=== PATIENT | female | born 1940 | race Caucasian/White ===

== ENCOUNTER 2023-05-05 14:35 | Inpatient (IN) | payer MEDICARE, OTHER, SELFPAY ==
[2023-05-05] VITALS (32 sets, daily range): BP systolic 154–166; BP diastolic 59–67; PULSE 66–96; RESP 13–28; TEMP 36.4–36.7; O2SAT 95–99; BMI 30.1; BMI 21.0
--- NOTE | 2023-05-05 14:48 | CT_ITS ---
The [address] [address] Patient Name: CRISTOBAL MCDANIELS MRN: [id number] date: 1940 Sex: F Assigned Patient Location: ED.MAIN Current Patient Location: Accession/Order Number: [id number] Exam Date: 05/05/2023 14:54 Report Date: 05/05/2023 15:08 At the request of: DODIE BLANCHARD Procedure: CT stroke head/brain wo con EXAMINATION: CT stroke head/brain wo con TECHNIQUE: Axial CT images were obtained through the brain. Sagittal and coronal reformatted images were also obtained. Dose reduction techniques were achieved by using automated exposure control and/or adjustment of mA and/or kV according to patient size and/or use of iterative reconstruction technique. HISTORY: right sided weakness COMPARISON: None. FINDINGS: Intracranial Bleed: No evidence for acute intracranial bleed. Intracranial Mass: No evidence for mass lesion. No mass effect or midline shift. Extra-axial spaces: There is mild cerebral atrophy and proportional ventricular enlargement. White/Hernandez Matter: No acute cortical infarct. Old lacunar infarct of the left basal ganglia. Mild chronic white matter small vessel ischemic change. Skull/Scalp: No evidence for skull fracture or lesion. Orbits and sinuses: The orbits appear unremarkable. The visualized paranasal sinuses are clear. CT/CT stroke head/brain wo con IMPRESSION: No acute intracranial pathology. Electronically authenticated by: APRIL RODRIGUEZ Date: 05/05/2023 15:08
--- NOTE | 2023-05-05 14:48 | ECG_ITS ---
The [facility] Test Date: 2023-05-05 Pat Name: CRISTOBAL MCDANIELS Department: Room: - Gender: Female Workers Compensation Administrator: : 1940 Requested By: Order Number: [id number] Reading MD: MALLORIE CHUA Measurements Intervals [place] Rate: 78 P: 70 [place]: 174 QRS: -24 QRSD: 82 T: 71 QT: 366 QTc: 399 Interpretive Statements 1100 Sinus rhythm 5234 Left ventricular hypertrophy with repolarization abnormality 7202 Moderate left axis deviation 9150 abnormal ECG No previous ECG available for comparison Electronically Signed On 05-07-2023 18:19:51 EDT by MALLORIE CHUA
--- NOTE | 2023-05-05 14:50 | ED.NEUROSD1 ---
HPI - Neuro Symptoms/Deficit General Chief Complaint: Neuro Symptoms/Deficit Stated Complaint: CVA SYMPTOMS Time Seen by Provider: 05/05/23 14:42 History of Present Illness HPI Narrative: patient developed right arm and right leg weakness around 3pm this afternoon and was brought to our ED by her daughter for evaluation. The patient and daughter gave the history. They were shopping at [employer] in [place] when the daughter noticed that the patient had difficulty stepping and bearing weight onto the right foot. 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 Patient said that she takes thyroid medication only. She denied HTN, high cholesterol, DM, CAD or prior CVA/TIA. She admitted that she does not see her PCP regularly. Her physician works in another town far from here - the patient lives elsewhere but has been visiting her daughter since the recent of the daughter's . On questioning the patient admitted that the episode started the evening of 05/02/23 and has been waxing and waning since without returning to baseline and then suddenly worsening around 3pm this afternoon. So last knwon well is actually around 5 or 6pm on 05/02/23. Related Data Home Medications Medication Instructions Recorded Confirmed levothyroxine 100 mcg tablet 100 mcg PO DAILY 05/05/23 05/05/23 Allergies Allergy/AdvReac Type Severity Reaction Status Date / Time No Known Drug Allergies Allergy Verified 05/05/23 14:52 PFSH PFS Social History Smoking status: Former smoker Exam Narrative Exam Narrative: Nurses notes and vital signs reviewed and patient is not hypoxic. afebrile General: Well-appearing and in no apparent distress. GCS=15. Skin: Warm, dry, no pallor noted. No rash. Head: Normocephalic, atraumatic. Neck: Supple, non-tender. Eye: Pupils are equal, round and EOMI. No scleral icterus. Ears, Nose, Mouth, and Throat: No facial asymmetry Cardiovascular: Regular Rate and Rhythm without murmur, gallop or rub. Respiratory: No accessory muscle use or respiratory distress. Lungs are clear to auscultation, no wheezing, rales or rhonchi Musculoskeletal: normal ROM, no calf or popliteal tenderness, no lower extremity edema/swelling GI: Abdomen is soft, non-distended. Normal bowel sounds. No tenderness to palpation. No rebound, guarding, or rigidity noted. Neurological: A&O x4. No cranial nerve dysfunction observed. No truncal ataxia. Moves all extremities. Sensation intact. Psychiatric: Cooperative and interactive. Normal mood and affect. NIH =2 for right UE and right LE weakness. Constitutional Vital Signs, click to edit/add: Last Vital Signs Temp 98.1 F 05/05/23 14:46 Pulse 77 05/05/23 16:10 Resp 18 05/05/23 16:10 BP 154/59 H 05/05/23 17:16 Pulse Ox 99 05/05/23 17:10 O2 Del Method Room Air 05/05/23 14:46 Course Vital Signs Vital signs: Vital Signs Temperature 98.1 F 05/05/23 14:46 Pulse Rate 96 H 05/05/23 14:46 Respiratory Rate 18 05/05/23 14:46 Blood Pressure 166/64 H 05/05/23 14:46 Pulse Oximetry 96 05/05/23 14:46 Oxygen Delivery Method Room Air 05/05/23 14:46 Temperature 98.1 F 05/05/23 14:46 Pulse Rate 77 05/05/23 16:10 Respiratory Rate 18 05/05/23 16:10 Blood Pressure 154/59 H 05/05/23 17:16 Pulse Oximetry 99 05/05/23 17:10 Oxygen Delivery Method Room Air 05/05/23 14:46 MDM - Neuro Symptoms/Deficit MDM Narrative Medical decision making narrative: Patient presents with sudden onset right UE and right LE weakness onset/LKW around 3pm. GCS = 15. NIH = 2 due to right sided weakness. Patient immediately sent for non contrast head CT per stroke protocol. radiologist did not find acute pathology to account for the patient's symptoms. Patient was placed on surveillance monitor and EKG obtained. Blood drawn and sent for evaluation. Urine was ordered to be obtained. CT angio head and neck revealed left middle cerebral artery CVA. Dr Redman at [facility] and I discussed this patient's case several times and it was decided that the patient would receive a loading dose of aspirin 325mg orally and then be started on 81mg aspirin daily. No plavix would be given and the patient would be admitted to [facility] with teleneurology consultation, non contrast MRI of the brain and Echocardiography testing. I contacted the lead simulation modeling engineer teleneurologist to discuss admission. Dr Salazar Sister agreed to admit the patient - ICU, inpatient with orders as noted above. I kept continued communication with the patient and her daughter to inform them of plan for evaluation, tests results, diagnosis and recommended treatment. We discussed many transfer options and the logistics and challenges of those options. they agreed to have the patient stay at [facility] as recommended by Dr Redman. Lab Data Attestation: I reviewed the patient's lab results. Labs: Lab Results 05/05/23 05/05/23 Range/Units 14:54 15:01 WBC 6.8 (4.0-11.0) 10^3/uL RBC 4.73 (4.20-5.40) 10^6/uL Hgb 13.7 (12.0-16.0) g/dL Hct 42.9 (36.0-48.0) % MCV 90.7 (81.0-99.0) fL MCH 29.0 (26.7-34.0) pg MCHC 31.9 (29.9-35.2) g/dL RDW 13.8 (11.0-15.0) % Plt Count 269 (150-450) 10^3/uL MPV 10.8 (9.5-13.5) fL Neut % (Auto) 57.3 (43.0-75.0) % Lymph % (Auto) 30.7 (20.5-60.0) % [place] % (Auto) 9.6 (1.7-12.0) % Eos % (Auto) 1.9 (0.9-7.0) % Baso % (Auto) 0.4 (0.2-2.0) % Neut # (Auto) 3.9 (1.4-6.5) 10^3/uL Lymph # (Auto) 2.1 (1.2-3.8) 10^3/uL [place] # (Auto) 0.7 (0.3-0.8) 10^3/uL Eos # (Auto) 0.1 (0.0-0.7) 10^3/uL Baso # (Auto) 0.0 (0.0-0.1) 10^3/uL Abs Immat Gran (auto) 0.01 (0.00-0.03) 10^3/uL Imm/Tot Granulo (auto) 0.1 (0.0-0.5) % PT 10.2 (9.0-11.6) sec INR 0.96 APTT 24.9 (22.3-36.2) sec Sodium 138 (136-145) mmol/L Potassium 4.0 (3.5-5.1) mmol/L Chloride 104 (98-107) mmol/L Carbon Dioxide 31.4 (21.0-32.0) mmol/L Anion Gap 6.6 BUN 14.0 (7.0-18.0) mg/dL Creatinine 0.83 (0.55-1.02) mg/dL Est GFR ( Amer) >60 (>=60) Est GFR (Non-Af Amer) >60 (>=60) BUN/Creatinine Ratio 16.9 Glucose 154 H (74-106) mg/dL Calcium 9.8 (8.5-10.1) mg/dL Total Bilirubin 0.4 (0.2-1.0) mg/dL AST 20 (15-37) U/L ALT 28 (14-59) U/L Alkaline Phosphatase 85 (46-116) U/L Total Protein 7.4 (6.4-8.2) g/dL Albumin 3.9 (3.4-5.0) g/dL Globulin 3.5 g/dL Albumin/Globulin Ratio 1.1 POC Glucose 141 H (74-106) mg/dL Imaging Data CT scan - head: Radiologist's impression: Patient Name: CRISTOBAL MCDANIELS MRN: [id number] date: 1940 Sex: F Assigned Patient Location: ED.MAIN Current Patient Location: ER Accession/Order Number: [id number] Exam Date: 05/05/2023 14:54 Report Date: 05/05/2023 15:08 At the request of: DODIE BLANCHARD Procedure: CT stroke head/brain wo con EXAMINATION: CT stroke head/brain wo con TECHNIQUE: Axial CT images were obtained through the brain. Sagittal and coronal reformatted images were also obtained. Dose reduction techniques were achieved by using automated exposure control and/or adjustment of mA and/or kV according to patient size and/or use of iterative reconstruction technique. HISTORY: right sided weakness COMPARISON: None. FINDINGS: Intracranial Bleed: No evidence for acute intracranial bleed. Intracranial Mass: No evidence for mass lesion. No mass effect or midline shift. Extra-axial spaces: There is mild cerebral atrophy and proportional ventricular enlargement. White/Hernandez Matter: No acute cortical infarct. Old lacunar infarct of the left basal ganglia. Mild chronic white matter small vessel ischemic change. Skull/Scalp: No evidence for skull fracture or lesion. Orbits and sinuses: The orbits appear unremarkable. The visualized paranasal sinuses are clear. IMPRESSION: No acute intracranial pathology. Electronically authenticated by: APRIL RODRIGUEZ Date: 05/05/2023 15:08 CT angio head & neck: Radiologist's impression: Patient Name: CRISTOBAL MCDANIELS MRN: [id number] date: 1940 Sex: F Assigned Patient Location: ER Current Patient Location: Accession/Order Number: [id number] Exam Date: 05/05/2023 16:20 Report Date: 05/05/2023 17:34 At the request of: DODIE BLANCHARD Procedure: CT angio head EXAM: CT angio head HISTORY: Right-sided weakness and slurred speech.. COMPARISON: Head CT on 05/15/2023. TECHNIQUE: Following IV administration of iodinated contrast, axial CT scans of the head and neck were obtained. MPR and MIP images images were obtained. Carotid stenosis is based on NASCET criteria. Dose reduction techniques were achieved by using automated exposure control and/or adjustment of mA and/or kV according to patient size and/or use of iterative reconstruction technique. FINDINGS: CTA OF THE HEAD: No major branch occlusion or significant intracranial stenosis. No aneurysm. Patent dural venous sinuses. CTA OF THE NECK: No abnormal soft tissue mass in the neck. The visualized lungs show no acute process in. Osseous structures are intact. Aortic arch shows no aneurysm. The great vessels of the aortic arch show no significant stenosis. Vertebral arteries show no significant stenosis or dissection. Common carotids and internal carotids show no significant stenosis or dissection. IMPRESSION: Head CT without contrast on 05/05/2023 shows possible small acute nonhemorrhagic infarct in the left middle frontal gyrus with low attenuation and loss of cortical medullary differentiation. If there is clinical indication, please consider MRI. No large vessel occlusion or significant intracranial stenosis. Patent dural venous sinuses. Carotids and vertebral arteries show no dissection or significant stenosis. Electronically authenticated by: CAROL SANCHES Date: 05/05/2023 17:34 ECG Data Interpretation: EKG interpretation: Emergency Department physician interpretation. Normal sinus rhythm at 78bpm. LVH with repolarization changes, Left axis. no ST segment elevation or depression. Critical Care Time Critical Care Time Critical Care Time: Yes Total Critical Care Time: 50 Attestation: includes time spent evaluating and examining the patient, ordering critical testing, time spent reviewing results and multiple discussions with providers including Neuro/Stroke team at [facility] and telehospitalist at [facility]. Discharge Plan Discharge Chief Complaint: Neuro Symptoms/Deficit Clinical Impression: Acute ischemic left MCA stroke Patient Disposition: Admitted As Inpatient Time of Disposition Decision: 15:59 Additional Instructions: admit, inpatient, ICU, Dr Franks's service (he takes over as hospitalist tomorrow morning)
[2023-05-05 15:03] LABS: Glucometer 141 mg/dL (74-106)
[2023-05-05 15:08] LABS: Basophils Percent Auto 0.4 % (0.2-2.0); Eosinophils Absolute Auto 0.1 10^3/uL (0.0-0.7); Eosinophils Percent Auto 1.9 % (0.9-7.0); Hematocrit 42.9 % (36.0-48.0); Hemoglobin 13.7 g/dL (12.0-16.0); Immature Granulocytes Abs Auto 0.01 10^3/uL (0.00-0.03); Immature Granulocytes Pct Auto 0.1 % (0.0-0.5); Lymphocytes Absolute Auto 2.1 10^3/uL (1.2-3.8); Lymphocytes Percent Auto 30.7 % (20.5-60.0); Mean Corpuscular HGB Conc 31.9 g/dL (29.9-35.2); Mean Corpuscular Volume 90.7 fL (81.0-99.0); Mean Platelet Volume 10.8 fL (9.5-13.5); Monocytes Absolute Auto 0.7 10^3/uL (0.3-0.8); Monocytes Percent Auto 9.6 % (1.7-12.0); Neutrophils Absolute Auto 3.9 10^3/uL (1.4-6.5); Neutrophils Percent Auto 57.3 % (43.0-75.0); Platelet Count 269 10^3/uL (150-450); Red Blood Count 4.73 10^6/uL (4.20-5.40); Red Cell Distribution Width 13.8 % (11.0-15.0); White Blood Count 6.8 10^3/uL (4.0-11.0)
[2023-05-05 15:26] LABS: INR 0.96; Prothrombin Time 10.2 sec (9.0-11.6)
[2023-05-05 15:28] LABS: Partial Thromboplastin Time 24.9 sec (22.3-36.2)
--- NOTE | 2023-05-05 15:31 | PC.NURSE ---
Pt scores a 2 on the NIH scale for right leg and arm drift.
[2023-05-05 15:34] LABS: Alanine Aminotransferase 28 U/L (14-59); Albumin Globulin Ratio 1.1; Albumin Level 3.9 g/dL (3.4-5.0); Alkaline Phosphatase 85 U/L (46-116); Anion Gap 6.6; Aspartate Amino Transferase 20 U/L (15-37); BUN Creatinine Ratio 16.9; Bilirubin Total 0.4 mg/dL (0.2-1.0); Calcium 9.8 mg/dL (8.5-10.1); Carbon Dioxide 31.4 mmol/L (21.0-32.0); Chloride 104 mmol/L (98-107); Estimated GFR (African America >60 (>=60); Estimated GFR (Non-African Ame >60 (>=60); Globulin 3.5 g/dL; Glucose 154 mg/dL (74-106); Sodium 138 mmol/L (136-145); Total Protein 7.4 g/dL (6.4-8.2)
--- NOTE | 2023-05-05 15:35 | PC.NURSE ---
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 She states she has no deltoid muscle so is limited in lifting the upper part of her arm, but is very independent and runs her own home . She lives in [facility] and has been here for the of her daughters . She describes her right leg becoming very heavy today, and her arm increasingly weak too. She initially noticed her leg feeling weak on Monday night, but to a much lesser extent. She kept it to herself as they were going to have a .
--- NOTE | 2023-05-05 16:29 | CT_ITS ---
The [address] [address] Patient Name: CRISTOBAL MCDANIELS MRN: [id number] date: 1940 Sex: F Assigned Patient Location: ER Current Patient Location: Accession/Order Number: [id number] Exam Date: 05/05/2023 16:20 Report Date: 05/05/2023 17:34 At the request of: DODIE BLANCHARD Procedure: CT angio neck EXAM: CT angio head HISTORY: Right-sided weakness and slurred speech.. COMPARISON: Head CT on 05/15/2023. TECHNIQUE: Following IV administration of iodinated contrast, axial CT scans of the head and neck were obtained. MPR and MIP images images were obtained. Carotid stenosis is based on NASCET criteria. Dose reduction techniques were achieved by using automated exposure control and/or adjustment of mA and/or kV according to patient size and/or use of iterative reconstruction technique. FINDINGS: CTA OF THE HEAD: No major branch occlusion or significant intracranial stenosis. No aneurysm. Patent dural venous sinuses. CTA OF THE NECK: No abnormal soft tissue mass in the neck. The visualized lungs show no acute process in. Osseous structures are intact. Aortic arch shows no aneurysm. The great vessels of the aortic arch show no significant stenosis. Vertebral arteries show no significant stenosis or dissection. Common carotids and internal carotids show no significant stenosis or dissection. CT/CT angio neck IMPRESSION: Head CT without contrast on 05/05/2023 shows possible small acute nonhemorrhagic infarct in the left middle frontal gyrus with low attenuation and loss of cortical medullary differentiation. If there is clinical indication, please consider MRI. No large vessel occlusion or significant intracranial stenosis. Patent dural venous sinuses. Carotids and vertebral arteries show no dissection or significant stenosis. Electronically authenticated by: CAROL SANCHES Date: 05/05/2023 17:34
--- NOTE | 2023-05-05 16:29 | CT_ITS ---
The [address] [address] Patient Name: CRISTOBAL MCDANIELS MRN: [id number] date: 1940 Sex: F Assigned Patient Location: ER Current Patient Location: Accession/Order Number: [id number] Exam Date: 05/05/2023 16:20 Report Date: 05/05/2023 17:34 At the request of: DODIE BLANCHARD Procedure: CT angio head EXAM: CT angio head HISTORY: Right-sided weakness and slurred speech.. COMPARISON: Head CT on 05/15/2023. TECHNIQUE: Following IV administration of iodinated contrast, axial CT scans of the head and neck were obtained. MPR and MIP images images were obtained. Carotid stenosis is based on NASCET criteria. Dose reduction techniques were achieved by using automated exposure control and/or adjustment of mA and/or kV according to patient size and/or use of iterative reconstruction technique. FINDINGS: CTA OF THE HEAD: No major branch occlusion or significant intracranial stenosis. No aneurysm. Patent dural venous sinuses. CTA OF THE NECK: No abnormal soft tissue mass in the neck. The visualized lungs show no acute process in. Osseous structures are intact. Aortic arch shows no aneurysm. The great vessels of the aortic arch show no significant stenosis. Vertebral arteries show no significant stenosis or dissection. Common carotids and internal carotids show no significant stenosis or dissection. CT/CT angio head IMPRESSION: Head CT without contrast on 05/05/2023 shows possible small acute nonhemorrhagic infarct in the left middle frontal gyrus with low attenuation and loss of cortical medullary differentiation. If there is clinical indication, please consider MRI. No large vessel occlusion or significant intracranial stenosis. Patent dural venous sinuses. Carotids and vertebral arteries show no dissection or significant stenosis. Electronically authenticated by: CAROL SANCHES Date: 05/05/2023 17:34
[2023-05-05 18:49] LABS: Bilirubin Urine NEGATIVE (NEGATIVE); Blood Urine NEGATIVE (NEGATIVE); Clarity Urine CLEAR (CLEAR); Color Urine LT. YELLOW (YELLOW); Glucose Urine UA NEGATIVE (NEGATIVE); Ketones Urine NEGATIVE (NEGATIVE); Leukocyte Esterase Urine NEGATIVE (NEGATIVE); Nitrite Urine NEGATIVE (NEGATIVE); Protein Urine NEGATIVE (NEG/TRACE); Urobilinogen Urine 0.2 EU/dL (0.2-1.0)
[2023-05-05] MEDS: ASPIRIN 325 MG TABLET PO (18:50)
[2023-05-05 19:02] LABS: Urine Microscopic Indicated NO
--- NOTE | 2023-05-05 20:42 | W.PM.TELEPN ---
Progress Note: Subjective Subjective Interval history: CC: Right-sided weakness HPI: This is a very pleasant 82 years old female who does not have primary care physician in the area and who presents with above complaints. Patient stating that about 3 days ago she developed weakness in her right side (arm and leg.). The symptoms were intermittent in the beginning, but gradually intensified. Today she has not been able to get out of her car. Patient is right side predominant. She never had strokes in the past. Patient's past medical history significant for hypothyroidism for which she takes levothyroxine. No history of diabetes, cholesterol problems, arrhythmia or dyslipidemia. Evaluation in the emergency room (imaging) confirm recent stroke in the left MCA territory. A full consultation obtained with a neurologist who recommended for patient to stay in the hospital to continue neurological work-up. In terms of secondary prevention?recommendations to continue with aspirin only. Exam Narrative Exam Narrative: ROS: 1.General: no fever, chills, not in distress 2.HEENT: no GAO, no blurry vision, no swallow problems, no nasal congestion, no sore throat 3.Pulmonary: no cough, SOB, wheezes 4.CVS: no CP, no palpitations, no ARIAS, no SOB, no intermittent claudication 5.GI: no nausea, vomiting or diarrhea, no abdominal pain, no constipation, no hematemesis or hematochezia 6.: no renal colic, no hematuria, urinary frequency or urgency 7.Extremities: no edema 8.Neurological: See above 9.Musculosceletal: no joint pains, no joint swelling, no back pain 10.Dermatological: no skin rashes, no lesions, no pruritus 11.Hematological: no bleeding, no hx/o clots 12.Endocrinological: no heat/cold intolerance, no hx/o diabetes 13.Psychiatric: no suicidal or homicidal thoughts Physical Exam: Not in distress, pleasant, lucid, cooperative, Head - atraumatic, eyes - pupils equal, round, reactive to light, extra ocular movement intact, MMM Neck - supple, thyroid not enlarged, LN not palpated Lungs - clear to auscultation, no dullness on percussion CVS - heart sounds S1, S2, no additional murmurs gallop, regular rate and rhythm Gastrointestinal?abdomen is soft, non-tender, non-distended, no organomegaly, positive bowel sounds Extremities no clubbing, cyanosis or edema Neurological?cranial nerve II?XII grossly intact, right sided weakness with motor strength of 3/5 Musculoskeletal - joints, no effusions, ROM preserved Dermatological - the skin dry, warm, no rashes Psychiatric?patient is AAO X3, patient has normal affect Constitutional Vital Signs, click to edit/add: Last Vital Signs Temp 97.8 F 05/05/23 20:13 Pulse 67 05/05/23 20:13 Resp 16 05/05/23 20:13 BP 163/67 H 05/05/23 20:13 Pulse Ox 97 05/05/23 20:13 O2 Del Method Room Air 05/05/23 20:13 Progress Note: Objective Labs Labs: Short CBC 05/05/23 Range/Units 14:54 WBC 6.8 (4.0-11.0) 10^3/uL Hgb 13.7 (12.0-16.0) g/dL Hct 42.9 (36.0-48.0) % Plt Count 269 (150-450) 10^3/uL BMP 05/05/23 14:54 Sodium 138 Potassium 4.0 Chloride 104 Carbon Dioxide 31.4 BUN 14.0 Creatinine 0.83 Glucose 154 H Calcium 9.8 Liver Function 05/05/23 Range/Units 14:54 Total Bilirubin 0.4 (0.2-1.0) mg/dL AST 20 (15-37) U/L ALT 28 (14-59) U/L Alkaline Phosphatase 85 (46-116) U/L Albumin 3.9 (3.4-5.0) g/dL Urine 05/05/23 Range/Units 18:30 Urine Color Lt. yellow (YELLOW) Urine Clarity Clear (CLEAR) Urine pH 7.0 (5.0-9.0) Ur Specific [place] 1.010 (1.005-1.025) Urine Protein Negative (NEG/TRACE) mg/dL Urine Glucose (UA) Negative (NEGATIVE) mg/dL Progress Note: A&P Assessment and Plan (1) Acute ischemic left MCA stroke: Assessment and Plan: CVA - patient admitted with acute neurological deficit - As per evaluation in ER patient did not qualify for a tPa treatment - Admit to telemetry - Frequent neuro-checks - Will obtain MRI of the brain and MRA of the Head and Neck - Will obtain an ECHO with bubbles - F/U with Neurologist for further recommendations Secondary prevention ? will make sure patient is on Full dose of EC ASA and at least moderate potency dose of Atorvastatin unless contraindicated Tertiary prevention ? fall/aspiration precautions are in place - DVT prophylaxis (2) Hypercholesteremia: Assessment and Plan: Patient started on moderate potency dose of atorvastatin. Follow-up results of the lipid panel (3) Hypothyroid: Assessment and Plan: Restarted on home dose of supplemental levothyroxine (4) Injury of deltoid region: Assessment and Plan: Follow-up with physical and Occupational Therapy for further recommendations Plan END: As the provider for the telehealth service, I attest that I introduced myself to the patient, provided my credentials, disclosed by location and determined that based on a review of the patient's chart and discussion with members of the patient's treatment team, telemedicine via real-time, 2 way, and interactive audio and video platform is an appropriate and effective means of providing the service. ?The patient and I mutually agree this visit is appropriate for telemedicine. ?[place] ?The encounter took approximately 35 minutes. ?The nurse was present during the entire time and I was able to move the stethoscope in appropriate directions. ?The patient was evaluated at the Hospital ? Portions of this note may be dictated using [employer] voice recognition software. Variances in spelling and vocabulary are possible and unintentional. Not all errors may be caught and/or corrected. Please notify the author if any discrepancies are noted and/or if the meaning of any statement is unclear.? ? Patient verbally consented for treatment via video visit with patient currently located at the [facility] and provider located in [place]. Telemedicine Attestation Telemedicine Attestation I conducted this encounter from [place]] via secure live, [id number] video conference with the patient, located at [facility] with [CVA,]. Prior to the interview, the risks and benefits of telemedicine were discussed with the patient and verbal consent was obtained.
[2023-05-05 20:58] LABS: Basophils Absolute Auto 0.1 10^3/uL (0.0-0.1); Eosinophils Absolute Auto 0.2 10^3/uL (0.0-0.7); Eosinophils Percent Auto 3.1 % (0.9-7.0); Hematocrit 42.2 % (36.0-48.0); Hemoglobin 13.4 g/dL (12.0-16.0); Immature Granulocytes Abs Auto 0.02 10^3/uL (0.00-0.03); Immature Granulocytes Pct Auto 0.3 % (0.0-0.5); Lymphocytes Absolute Auto 2.3 10^3/uL (1.2-3.8); Lymphocytes Percent Auto 33.7 % (20.5-60.0); Mean Corpuscular HGB Conc 31.8 g/dL (29.9-35.2); Mean Corpuscular Hemoglobin 29.2 pg (26.7-34.0); Mean Corpuscular Volume 91.9 fL (81.0-99.0); Mean Platelet Volume 10.9 fL (9.5-13.5); Monocytes Absolute Auto 0.9 10^3/uL (0.3-0.8); Neutrophils Absolute Auto 3.3 10^3/uL (1.4-6.5); Neutrophils Percent Auto 48.9 % (43.0-75.0); Platelet Count 261 10^3/uL (150-450); Red Blood Count 4.59 10^6/uL (4.20-5.40); White Blood Count 6.7 10^3/uL (4.0-11.0)
[2023-05-05 21:08] LABS: pH VBG 7.488 (7.330-7.430)
[2023-05-05 21:09] LABS: PCO2 VBG 35.3 mmHg (40.0-52.0)
[2023-05-05 21:17] LABS: Chol HDL Ratio 2.6; Cholesterol 264 mg/dL (<=200); HDL Cholesterol 103 mg/dL (40-60); Triglycerides 79 mg/dL (<=150); VLDL CHOLESTEROL 15.8 mg/dL
[2023-05-05] MEDS: 0.9 % SODIUM CHLORIDE 1,000 ML 75 ML IV (23:27)
[2023-05-05] MEDS: ATORVASTATIN CALCIUM 40 MG TABLET PO (23:28)
[2023-05-06] VITALS (78 sets, daily range): BP systolic 135–165; BP diastolic 51–79; PULSE 60–89; RESP 0–30; TEMP 36.6–37.1; O2SAT 97–99
[2023-05-06] MEDS: LEVOTHYROXINE SODIUM 100 MCG TABLET PO (06:25)
--- NOTE | 2023-05-06 08:30 | MR_ITS ---
[facility] [address] Patient Name: CRISTOBAL MCDANIELS MRN: [id number] date: 1940 Sex: F Assigned Patient Location: ICU Current Patient Location: ICU Accession/Order Number: [id number] Exam Date: 05/06/2023 09:30 Report Date: 05/06/2023 10:48 At the request of: MARY GREGORIO Procedure: MR head/brain wo con MRI brain without contrast, 05/06/2023. HISTORY: Right-sided numbness. Difficulty speaking. COMPARISON: CT head, 05/05/2023. TECHNIQUE: Sagittal T1, axial T2, FLAIR, diffusion, T2 gradient images obtained. FINDINGS: Paranasal sinuses are clear. Mastoid air cells clear. Nasopharynx normal. Credit Department Manager spaces are normal. Orbital contents are unremarkable. Prior cataract surgery. Moderate brain atrophy. No hydrocephalus. No extra-axial fluid collections. No mass effect. No shift of midline. Mild chronic microvascular ischemic changes in the cerebral white matter. Diffusion images show diffusion restriction in the left basal ganglia and left mckeon radiata consistent with acute lacunar infarction. The diffusion signal abnormality measures up to 1.6 cm in greatest dimension. No other diffusion signal abnormality. No hemorrhagic lesions. No masses. MR/MR head/brain wo con IMPRESSION: 1. Acute to subacute lacunar infarction involving the left basal ganglia and mckeon radiata measuring up to approximately 1.6 cm in greatest dimension. No mass effect or hemorrhage. 2. Brain atrophy and chronic microvascular ischemic changes. No masses. Electronically authenticated by: APRIL STOLL Date: 05/06/2023 10:48
[2023-05-06] MEDS: ASPIRIN 325 MG TABLET.DR PO (10:10)
[2023-05-06 10:33] LABS: Estimated Average Glucose 103 mg/dL; Glycohemoglobin A1C 5.2 % (4.5-6.2)
--- NOTE | 2023-05-06 14:04 | PM.HP ---
H&P: HPI History of Present Illness Chief complaint: Right arm and leg weakness Narrative: 82 y/o female to ER with weakness in right arm and leg. Developed weakness 2 days prior. Weakness off and on but mild. Day admission walking in store and severe weakness in right leg. Not able to move leg and to ER. CT head with possible CVA and telestroke consulted. CTA head and neck negative for blockage. Started aspirin and admitted. Started lipitor and continued aspirin. MRI performed and showed acute CVA. Patient feels well this am. Seen by PT and ambulated well. Minimal weakness. Review of Systems ROS Constitutional Denies: fever, chills or night sweats Cardiovascular Denies: chest pain, palpitations or edema Respiratory Denies: shortness of breath, cough or wheezing Gastrointestinal Denies: abdominal pain, nausea, vomiting or diarrhea Genitourinary Denies: painful urination Neurological Reports: weakness in extremities; Denies: vertigo or confusion PFSH [facility] [place] Medical History (Updated 05/06/23 @ 14:09 by Eagle Franks MD) Hypothyroid ?E03.9 - Hypothyroidism, unspecified (ICD-10) Family History (Updated 05/05/23 @ 19:43 by Mony Garay) Mother Family history of cancer Father Family history of cancer Grandmother Family history of stroke Social History (Updated 05/05/23 @ 19:44 by Mony Garay) Within the past year, how often did you have a drink containing alcohol: 4 or more times a week Within the past year, how many standard drinks containing alcohol did you have on a typical day: 1 or 2 Total score: 0 Score interpretation: A score less than 3 is consistent with normal alcohol consumption. Smoking status: Former smoker Non-prescribed substance use: denies use Previous occupational history: Work on farm. Highest level of school completed/degree received: some college, no degree Are you now , , , , never or living with a partner: In a typical week, how many times do you talk on the telephone with family, friends, or neighbors: 3 or more times per week Little interest or pleasure in doing things: not at all Feeling down, depressed, or hopeless: not at all Feel stressed/tense/nervous/anxious/difficulty sleeping: not at all Meds Home Medications and Allergies Home Medications Medication Instructions Recorded Confirmed Type levothyroxine 100 mcg tablet 100 mcg PO DAILY 05/05/23 05/05/23 History Allergies Allergy/AdvReac Type Severity Reaction Status Date / Time No Known Drug Allergies Allergy Verified 05/05/23 14:52 Exam Constitutional Vital Signs, click to edit/add: Last Vital Signs Temp 97.8 F 05/06/23 06:17 Pulse 78 05/06/23 12:00 Resp 16 05/06/23 12:00 BP 142/56 H 05/06/23 06:17 Pulse Ox 97 05/06/23 12:00 O2 Del Method Room Air 05/06/23 06:17 Documenting provider has reviewed patient's vital signs: yes Common normals: no apparent distress, oriented x3 and alert HENMT Common normals: normocephalic Eye Common normals: PERRL and EOMs intact bilaterally Respiratory Common normals: normal respiratory effort and clear to auscultation bilaterally Cardio Common normals: regular rate, regular rhythm, no gallops, no murmurs and no rub GI Common normals: Normal to inspection, nondistended, normoactive bowel sounds present and non-tender Extremity Common normals: no pedal edema Neuro Common normals: moves all extremities Motor exam: strength abnormal (Weakness RUE and deltoid region, Normal varnish melter strength) Results Labs Labs: Short CBC 05/05/23 05/05/23 Range/Units 14:54 20:47 WBC 6.8 6.7 (4.0-11.0) 10^3/uL Hgb 13.7 13.4 (12.0-16.0) g/dL Hct 42.9 42.2 (36.0-48.0) % Plt Count 269 261 (150-450) 10^3/uL BMP 05/05/23 14:54 Sodium 138 Potassium 4.0 Chloride 104 Carbon Dioxide 31.4 BUN 14.0 Creatinine 0.83 Glucose 154 H Calcium 9.8 Liver Function 05/05/23 Range/Units 14:54 Total Bilirubin 0.4 (0.2-1.0) mg/dL AST 20 (15-37) U/L ALT 28 (14-59) U/L Alkaline Phosphatase 85 (46-116) U/L Albumin 3.9 (3.4-5.0) g/dL Urine 05/05/23 Range/Units 18:30 Urine Color Lt. yellow (YELLOW) Urine Clarity Clear (CLEAR) Urine pH 7.0 (5.0-9.0) Ur Specific Delton 1.010 (1.005-1.025) Urine Protein Negative (NEG/TRACE) mg/dL Urine Glucose (UA) Negative (NEGATIVE) mg/dL ABG ABG results: 05/05/23 20:47 VBG pH 7.488 H VBG pCO2 35.3 L Imaging MRI - head: Attestation: I have reviewed the pertinent imaging results. Assessment and Plan Assessment and Plan (1) Acute ischemic left MCA stroke: (2) Hypercholesteremia: (3) Injury of deltoid region: Plan MRI showed actue stroke and on aspirin and lipitor. Teleneuro consult performed and recommend plavix x 2 weeks in addition to aspirin and statin. Recommend stay in hospital until able to perform echo. Continue PT/OT.
[2023-05-06] MEDS: CLOPIDOGREL BISULFATE 75 MG TABLET PO (18:39)
[2023-05-06] MEDS: ATORVASTATIN CALCIUM 40 MG TABLET PO (21:50)
[2023-05-07] VITALS (64 sets, daily range): BP systolic 133–160; BP diastolic 54–79; PULSE 59–97; RESP 4–24; TEMP 36.4–36.7; O2SAT 95–99
[2023-05-07] MEDS: LEVOTHYROXINE SODIUM 100 MCG TABLET PO (06:37)
[2023-05-07] MEDS: CLOPIDOGREL BISULFATE 75 MG TABLET PO (08:32)
[2023-05-07] MEDS: ASPIRIN 325 MG TABLET.DR PO (08:33)
--- NOTE | 2023-05-07 14:17 | PM.PN ---
Progress Note: Subjective Subjective Interval history: Patient feels well this am. No further weakness in arm or leg. Ambulating well. Normal appetite and no emesis or diarrhea. No chest pain or palpitations. Not lightheaded. No SOB or cough. Seen by tele-neurology and recommended plavix x 2 weeks along with aspirin then aspirin alone. Will need statin. Recommended stay in hospital until able to have echo.. Exam Constitutional Vital Signs, click to edit/add: Last Vital Signs Temp 97.6 F 05/07/23 07:43 Pulse 72 05/07/23 14:00 Resp 12 05/07/23 07:50 BP 145/63 H 05/07/23 07:43 Pulse Ox 99 05/07/23 00:34 O2 Del Method Room Air 05/06/23 18:00 Documenting provider has reviewed patient's vital signs: yes Common normals: no apparent distress, oriented x3 and alert HENMT Common normals: normocephalic Eye Common normals: PERRL and EOMs intact bilaterally Respiratory Common normals: normal respiratory effort and clear to auscultation bilaterally Cardio Common normals: regular rate, regular rhythm, no gallops, no murmurs and no rub GI Common normals: Normal to inspection, nondistended, normoactive bowel sounds present and non-tender Extremity Common normals: no pedal edema Neuro Common normals: CN's II-XII intact bilaterally Gait (neuro): normal gait Motor exam: strength 5/5 throughout Progress Note: A&P Assessment and Plan (1) Acute ischemic left MCA stroke: (2) Hypercholesteremia: (3) Injury of deltoid region: Plan Patient doing well and no further deficits. Tolerating lipitor and continue. Echo with agitated saline in am and can discharge home after procedure.
[2023-05-07] MEDS: ATORVASTATIN CALCIUM 40 MG TABLET PO (21:06)
[2023-05-08] VITALS (7 sets, daily range): BP systolic 111–142; BP diastolic 64–78; PULSE 61–79; RESP 18–20; TEMP 36.7; O2SAT 94–95
[2023-05-08] MEDS: LEVOTHYROXINE SODIUM 100 MCG TABLET PO (05:40)
--- NOTE | 2023-05-08 06:57 | CA_ITS ---
Patient: CRISTOBAL MCDANIELS Exam Date: 05/08/2023 : 1940 Gender:F Ordering : DR Eagle Franks . Admission #: [id number] Family : Order #: [id number] CLICK HERE TO VIEW EXAM ECHOCARDIOGRAM REPORT PROCEDURE: CA ECHO DOPPLER COMPLETE INDICATIONS: Acute ischemic left MCA stroke COMPARISON: None. DESCRIPTION: COMPLETE ECHOCARDIOGRAM Real-time transthoracic echocardiography with 2D, M-mode, spectral and color flow Doppler performed. QUALITY: Technical quality was good. LEFT VENTRICLE: Normal chamber size. Normal left ventricular wall thickness. LV EF: Global left ventricular systolic function is hyperdynamic; visually estimated ejection fraction 65 to 70%. No wall motion abnormalities. DIASTOLIC: Normal diastolic function. ATRIAL SEPTUM: Intact atrial septum. Agitated saline contrast does not reveal an intra-cardiac shunt. LEFT ATRIUM: Normal chamber size. RIGHT ATRIUM: Normal chamber size. RIGHT VENTRICLE: Normal chamber size. Normal right ventricular systolic function. TRICUSPID VALVE: Normal mobility and thickness. No stenosis with no regurgitation. Unable to assess right-sided pressures due to lack of measurable tricuspid regurgitation. MITRAL VALVE: Mildly thickened with normal mobility. No evidence of mitral valve stenosis. Mild mitral annular calcification. Trivial mitral regurgitation. AORTIC VALVE: Normal trileaflet appearance. Mildly calcified aortic valve. Mildly diminished mobility. Doppler velocity suggests mild aortic valve stenosis. DVI 0.5, ELISE 1.88 cm2. No aortic regurgitation. AORTIC ROOT: Normal diameter and appearance. PULMONIC VALVE: Normal thickness and mobility. No stenosis. No regurgitation. PERICARDIUM: No evidence of pericardial effusion. IVC: Collapses with inspirations. CONCLUSION: 1. Global left ventricular systolic function is hyperdynamic; visually estimated ejection fraction 65 to 70% 2. Normal diastolic function 3. The right ventricle is normal in size and systolic function 4. Mild aortic valve stenosis 5. Agitated saline contrast does not reveal any intracardiac shunt Adult Echocardiography Procedure Report Left Ventricle LVEDD (3.7 - 5.6 cm): 3.30 cm LVESD (2.2 - 4.0 cm): 1.97 cm LVIVS thickness (0.6 - 1.2 cm): 1.08 cm LVPW thickness (0.5 - 1.0 cm): 9.40 mm LVOT Max Gradient: 2 mm[Hg] Peak Velocity (LVOT): 63.20 cm/s Mean Velocity (LVOT): 45.30 cm/s LVOT Diameter 1.90 cm Left Ventricular Ejection Fraction: 72.30 % Left Atrium LA Volume Index (2D A2C): 64542 mm3 Left Atrium Systolic Dimension: 3.00 cm Mitral Valve MV E to A Ratio: 1.10 Mitral Valve A-Wave Peak Velocity: 63.70 cm/s Mitral Valve E-Wave Peak Velocity: 68.60 cm/s Right Ventricle Aorta AO Root Diam: 3.40 cm Aortic Valve AoV Area (Peak Autsin): 1.56 cm2 AoV Area (VTI): 1.88 cm2 Peak Velocity(Antegrade Flow): 115.00 cm/s Peak Gradient(Antegrade Flow): 5 mm[Hg] Mean Velocity(Antegrade Flow): 70.90 cm/s Mean Gradient(Antegrade Flow): 2 mm[Hg] Velocity Time Integral: 24.20 cm Tricuspid Valve Peak Velocity: 47.90 cm/s Pulmonic Valve Peak Velocity: 87.30 cm/s, 83.40 cm/s Peak Gradient: 3 mm[Hg] Right Atrium Dictated by: Albino Acevedo M.D. on 05/08/2023 at 15:14 Approved by: Albino Acevedo M.D. on 05/08/2023 at 15:20
--- NOTE | 2023-05-08 09:00 | CM.NOTE ---
Important Message From Medicare discussed with pt, pt verbalizes understanding and signs paper. Original given to pt and copy placed on pt's chart.
[2023-05-08] MEDS: ASPIRIN 325 MG TABLET.DR PO (09:41)
[2023-05-08] MEDS: CLOPIDOGREL BISULFATE 75 MG TABLET PO (09:41)
--- NOTE | 2023-05-08 10:22 | P.DS_ITS ---
DS: Providers Provider Date of admission: 05/05/23 19:23 Primary care physician: Non-Staff Physician, Consults: 05/05/23 18:34 Consult to TeleNeurology Routine Consulting Provider: Reason for consultation: left middle cerebral artery CVA, right sided weakness 05/05/23 20:37 Occupational Therapy Eval and Treat Routine Reason for consultation: CVA Has provider been notified: No Physical Therapy Eval and Treat Routine Reason for consultation: CVA Has provider been notified: No Speech Therapy Eval and Treat Routine Reason for consultation: CVA Has provider been notified: No DS: Diagnosis Discharge Diagnosis (1) Acute ischemic left MCA stroke: (2) Hypercholesteremia: (3) Injury of deltoid region: DS: Summary Hospital Course Hospital Course: Reason for admission: See H&P for details. 82 y/o female to ER with weakness in right arm and leg. Developed weakness 2 days prior. Weakness off and on but mild. Day admission walking in store and severe weakness in right leg. Not able to move leg and to ER. CT head with possible CVA and telestroke consulted. CTA head and neck negative for blockage. Started aspirin and admitted. Hospital course: Started lipitor and continued aspirin. MRI performed and showed acute CVA. Patient felt well this am and minimal weakness. Seen by PT and ambulated well. Telestroke consult completed and recommended plavix x 14 days with aspirin then aspirin alone. Recommended crestor. Patient started on lipitor due to formulary and tolerated well. Patient reluctant to take statin and worried about side effects. Long discussion about benefits of statin and agreed to continue lipitor. Echo with bubble study needed and not available on weekend and neurology recommended hold discharge until performed. Patient did well and strength back to normal. Echo performed and preliminary read normal. Discharged home in stable condition. Will continue aspirin and lipitor daily. Take plavix x 14 days. F/u with PCP in 1-2 weeks. Time Spent with Patient Time attestation: Total time spent providing and/or coordinating discharge services: Quality: Stroke Onset of Symptoms Date: 05/05/23 Onset of Symptoms Time: 14:15 Symptom Onset Unknown: No Exam Constitutional Vital Signs, click to edit/add: Last Vital Signs Temp 98.1 F 05/08/23 05:38 Pulse 63 05/08/23 08:06 Resp 18 05/08/23 08:06 BP 142/78 H 05/08/23 08:06 Pulse Ox 94 L 05/08/23 08:06 O2 Del Method Room Air 05/08/23 08:06 Documenting provider has reviewed patient's vital signs: yes Common normals: no apparent distress, oriented x3 and alert HENMT Common normals: normocephalic Eye Common normals: PERRL and EOMs intact bilaterally Respiratory Common normals: normal respiratory effort and clear to auscultation bilaterally Cardio Common normals: regular rate, regular rhythm, no gallops, no murmurs and no rub GI Common normals: Normal to inspection, nondistended, normoactive bowel sounds present and non-tender Extremity Common normals: no pedal edema Neuro Common normals: CN's II-XII intact bilaterally Speech: speech normal Gait (neuro): normal gait Motor exam: strength 5/5 throughout Discharge Plan Discharge Disposition: Home, Self-Care Discharge Medications: New atorvastatin 40 mg Tablet 40 mg PO QHS Qty: 30 0RF clopidogrel 75 mg Tablet 75 mg PO DAILY 14 Days Qty: 14 0RF aspirin 81 mg capsule 81 mg PO DAILY Qty: 1 0RF Continued levothyroxine 100 mcg tablet 100 mcg PO DAILY Patient Comments: Takes on -Monday and a half a pill on Monday. Activity: resume usual activities as tolerated Diet: advance to your usual diet Patient Instructions: Stroke (DC) Forms: Portal Instructions Follow Up Appointments: Follow up with Justa Garcia with [facility] MondayMay 12 @ 2:00pm. [phone] Patient needs a referral to neurology at follow up appointment.
--- NOTE | 2023-05-08 10:39 | CM.NOTE ---
Rounds made with Dr. Franks, echo was completed and ok for discharge to home today. Discussed with pt importance of f/u with family doctor and neurologist.
--- NOTE | 2023-05-12 15:20 | CM.DCFOLLOWU ---
3rd attempt. No answer
== END 2023-05-08 10:20 | disposition home or self-care (01) | DRG 65 ==
LOC: ER 18:28 → ICU 19:27 → MS 05-07 09:05
PROVIDERS: Admitting Provider Internal Medicine; Emergency Provider Emergency Medicine; Visit Provider Family Medicine
DX: I63.89 Other cerebral infarction (principal); I69.351 Hemiplegia and hemiparesis following cerebral infarction affecting right dominant side; E78.00 Pure hypercholesterolemia, unspecified; E03.9 Hypothyroidism, unspecified; Z79.890 Hormone replacement therapy; Z87.891 Personal history of nicotine dependence; Z82.3 Family history of stroke; R29.701 NIHSS score 1; G83.21 Monoplegia of upper limb affecting right dominant side; S46 Injury of muscle, fascia and tendon at shoulder and upper arm level; X58.XXXS Exposure to other specified factors, sequela
CPT/HCPCS: 36415; 70450; 70496; 70498; 70551; 80053; 80061; 81003; 82800; 83036; 85025; 85610; 85730; 93005; 93306; 97161; 97165; 99285; Q3014; Q9967